=== PATIENT | male | born 1940 | race Caucasian/White ===

== ENCOUNTER 2018-10-17 19:06 | Inpatient (IN) | payer OTHER, BC ==
--- NOTE | 2018-10-17 19:38 | PDOC ---
History of Present Illness - General Chief Complaint: Chest Pain Stated Complaint: CHEST PAIN Time Seen by Provider: 10/17/18 19:38 History Source: Patient Exam Limitations: No Limitations - History of Present Illness Initial Comments: 10/17/18 19:56 78 year old male with PMH HTN, HLD on plaxix presented to ED for chest pain. Pt stated his pain began around 1400 today while he was sitting down. He stated his pain is located to his left chest, intermittent, occuring every 15 minutes, lasting seconds, nonradiating, no alleviating or aggravating factors, no association with exertion/inspiration. Pt denied palpitaitons, fever, chills, cough, lower extremity swelling, shortness of breath. Pt stated last stress test x5 years ago, was normal. Pt was seen in PCP (Dr. Felxi's) office yesterday for annual check up, had no complaints. Allergies: NKDA Smoking history: former smoker (last smoked 1960) Family history: father, [place] 75 yo; denied cardiac history for mother/siblings. [employer] [employer]: [place] Past History - Past Medical History Allergies/Adverse Reactions: Allergies Allergy/AdvReac Type Severity Reaction Status Date / Time No Known Allergies Allergy Verified 10/17/18 19:31 Home Medications: Ambulatory Orders Aspirin [ASA -] 81 mg PO DAILY 12/16/15 Atorvastatin Ca [Lipitor] 5 mg PO HS 12/16/15 Clopidogrel Bisulfate [Plavix -] 75 mg PO DAILY 12/16/15 Metoprolol Tartrate [Lopressor -] 50 mg PO DAILY 12/16/15 Hydrochlorothiazide 25 mg PO DAILY 10/17/18 Nifedipine ER [Procardia Xl -] 30 mg PO DAILY 10/17/18 HTN: Yes - Immunization History Immunization Up to Date: No - Suicide/Smoking/Psychosocial Hx Smoking History: Never smoked Have you smoked in the past 12 months: No Information on smoking cessation initiated: No Hx Alcohol Use: No Drug/Substance Use Hx: No Substance Use Type: None Review of Systems - Review of Systems Able to Perform ROS?: Yes Comments:: 10/17/18 19:57 General: denied fever, chills, generalized weakness. HEENT: denied sore throat, rhinorrhea, ear pain. Heart: admitted to chest pain. denied palpitations, syncope, diaphoresis. Respiratory: denied shortness of breath, cough, sputum production, hemoptysis. Abdomen: denied abdominal pain, nausea, vomiting, diarrhea, constipation, blood in stool. : denied dysuria, increased urinary frequency, hematuria, urinary incontinence , flank pain. Back: denied back pain. Musculoskeletal: denied joint pain, muscle pain, joint swelling. Neurological: denied headache, dizziness, numbness, tingling, weakness. Skin: denied rash, laceration, abrasion. *Physical Exam - Vital Signs Last Vital Signs Temp Pulse Resp BP Pulse Ox 97.3 F L 73 18 162/48 L 100 10/17/18 19:29 10/17/18 19:29 10/17/18 19:29 10/17/18 19:29 10/17/18 19:29 - Physical Exam Comments: 10/17/18 19:58 Constitutional: obese. appearing stated age. HEENT: head is normocephalic, atraumatic. EOMI. PERRLA. Neck: supple. Full ROM. Heart: regular rhythm. no murmurs, rubs or gallops. Lungs: clear to auscultation bilaterally. no crackles, rhonchi or wheezing. no stridor. Abdomen: soft, nontender, protuberant. normal bowel sounds. no rebound, guarding , masses. Extremities: peripheral pulses intact. 1+ pitting edema to bilateral LE. Neurological: CN 2-12 grossly intact. moves all four extremities. Psych: awake, alert, oriented x3. follows commands. answers questions appropriately. Moderate Sedation - Procedure Monitoring Vital Signs: Procedure Monitoring Vital Signs Temperature 97.3 F L 10/17/18 19:29 Pulse Rate 73 10/17/18 19:29 Respiratory Rate 18 10/17/18 19:29 Blood Pressure 162/48 L 10/17/18 19:29 O2 Sat by Pulse Oximetry (%) 100 10/17/18 19:29 Heart Score/ECG Review - History History: Slightly suspicious - Electrocardiogram EKG: Non specific repolarization disturbance - Age Age: >/= 65 - Risk Factors Risk Factors Heart Score: Yes Hx Hypercholesterolemia, Yes Hx Hypertension, Yes Smoking History, Yes Hx Obesity Based on the list above the patient has:: >/=3 risk factors or Hx atherosclerotic disease - Troponin Troponin: </= normal limit - Score Heart Score - Total: 5 ED Treatment Course - LABORATORY CBC & Chemistry Diagram: 10/20/18 05:30 10/21/18 05:50 Medical Decision Making - Medical Decision Making 10/17/18 19:59 78 year old male with above PMH presented to ED for intermittent sharp left sided chest pain. Initial Vital Signs Temp Pulse Resp BP Pulse Ox 97.3 F L 73 18 162/48 L 100 10/17/18 19:29 10/17/18 19:29 10/17/18 19:29 10/17/18 19:29 10/17/18 19:29 Afebrile. No tachycardia. No tachypnea. Mild hypertension. No hypoxia on room air. Labs ordered: CBC, CMP, trop, mag, phos, BNP, UA/UC Imaging ordered: CXR Medications ordered: ASA 162 EKG performed at 1916: rate 71, regular rhythm, normal axis, nonspecific intraventricular block, flipped T in V1/V2/V3. 10/17/18 20:15 CBC WBC 6.9 K/mm3 (4.0-10.0) 10/17/18 19:52 RBC 4.36 M/mm3 (4.00-5.60) 10/17/18 19:52 Hgb 14.2 GM/dL (11.7-16.9) 10/17/18 19:52 Hct 39.7 % (35.4-49) 10/17/18 19:52 MCV 91.1 fl (80-96) 10/17/18 19:52 MCH 32.5 pg (25.7-33.7) 10/17/18 19:52 MCHC 35.6 g/dl (32.0-35.9) 10/17/18 19:52 RDW 13.7 % (11.9-15.9) 10/17/18 19:52 Plt Count 240 K/MM3 (134-434) 10/17/18 19:52 MPV 7.3 fl (7.5-11.1) L 10/17/18 19:52 Absolute Neuts (auto) 4.8 K/mm3 (1.5-8.0) 10/17/18 19:52 Neutrophils % 69.3 % (42.8-82.8) 10/17/18 19:52 Lymphocytes % 18.5 % (8-40) 10/17/18 19:52 Monocytes % 10.1 % (3.8-10.2) 10/17/18 19:52 Eosinophils % 1.6 % (0-4.5) 10/17/18 19:52 Basophils % 0.5 % (0-2.0) 10/17/18 19:52 Nucleated RBC % 0 % (0-0) 10/17/18 19:52 No leukocytosis. No anemia. 10/17/18 21:00 CMP Sodium 128 mmol/L (136-145) L 10/17/18 19:40 Potassium 4.3 mmol/L (3.5-5.1) 10/17/18 19:40 Chloride 95 mmol/L (98-107) L 10/17/18 19:40 Carbon Dioxide 23 mmol/L (21-32) 10/17/18 19:40 Anion Gap 11 MMOL/L (8-16) 10/17/18 19:40 BUN 21 mg/dL (7-18) H 10/17/18 19:40 Creatinine 0.8 mg/dL (0.55-1.3) 10/17/18 19:40 Creat Clearance w eGFR > 60 (>60) 10/17/18 19:40 Random Glucose 115 mg/dL (74-106) H 10/17/18 19:40 Calcium 8.9 mg/dL (8.5-10.1) 10/17/18 19:40 Phosphorus 3.8 mg/dL (2.5-4.9) 10/17/18 19:40 Magnesium 1.8 mg/dL (1.8-2.4) 10/17/18 19:40 Total Bilirubin 0.4 mg/dL (0.2-1) 10/17/18 19:40 AST 14 U/L (15-37) L 10/17/18 19:40 ALT 20 U/L (13-61) 10/17/18 19:40 Alkaline Phosphatase 85 U/L (45-117) 10/17/18 19:40 Troponin I < 0.02 ng/ml (0.00-0.05) 10/17/18 19:40 B-Natriuretic Peptide 135.4 pg/ml (5-450) 10/17/18 19:40 Total Protein 7.1 g/dl (6.4-8.2) 10/17/18 19:40 Albumin 3.8 g/dl (3.4-5.0) 10/17/18 19:40 Hyponatremia. No ONESIMO. Mild dehydration. No transaminitis. Normal troponin. Normal BNP. Medications ordered: normal saline 1000 cc bolus 10/17/18 21:10 Pt to be admitted for observation of chest pain. 10/17/18 23:02 CXR report: possible left sided pleural effusion. *DC/Admit/Observation/Transfer Diagnosis at time of Disposition: Hyponatremia Chest pain Qualifiers: Chest pain type: unspecified Qualified Code(s): R07.9 - Chest pain, unspecified - Discharge Dispostion Disposition: TRANSFER ACUTE CARE/OTHER HOSP Condition at time of disposition: Stable Decision to Admit order: Yes - Referrals - Patient Instructions - Post Discharge Activity
[2018-10-17] MEDS ORDERED: ASPIRIN 81 MG CHEWABLE TABLETS PO ONE (19:41)
[2018-10-17 20:10] LABS: BASO % 0.5 % (0-2.0); EOS % 1.6 % (0-4.5); HEMATOCRIT 39.7 % (35.4-49); HEMOGLOBIN 14.2 GM/dL (11.7-16.9); LYMPH % 18.5 % (8-40); MCH 32.5 pg (25.7-33.7); MCHC 35.6 g/dl (32.0-35.9); MEAN CELL VOLUME 91.1 fl (80-96); MEAN PLT VOLUME 7.3 fl (7.5-11.1); MONO % 10.1 % (3.8-10.2); NEUT % 69.3 % (42.8-82.8); PLATELET COUNT 240 K/MM3 (134-434); RBC 4.36 M/mm3 (4.00-5.60); RDW 13.7 % (11.9-15.9); WHITE BLOOD COUNT 6.9 K/mm3 (4.0-10.0)
--- NOTE | 2018-10-17 20:28 | PDOC ---
Attending Attestation - HPI HPI: 10/17/18 20:59 The patient is a 78 year old male with a PMH of HTN, HLD, on plavix who presents to the ED for evaluation of chest pain that began at approximately 2PM today. Patient states he was sitting down when the chest pain began. Patient reports the chest pain is localized to the left side of his chest, intermittent , nonpleuritic, and nonradiating. Denies alleviating or exacerbating factors. Patient's last stress test was 5 years ago and was normal then. Patient denies shortness of breath, leg swelling, palpitations, fever, chills, N /V/D/C, or urinary symptoms. Allergies: NKDA Social Hx: Former smoker. No reported cigarette or alcohol use. Surgeries: None reported. PCP: Dr. Felix - Physicial Exam PE: 10/17/18 21:08 ADULT PHYSICAL EXAM Constitutional: Awake, alert, oriented. No acute distress. Cardiovascular: Regular rate. Regular rhythm. S1, S2 regular. Distal pulses are 2+ and symmetric. Pulmonary/Chest: No evidence of respiratory distress. Clear to auscultation bilaterally No wheezing, rales or rhonchi. No reproducible chest wall tenderness. Abdominal: Soft and non-distended. There is no tenderness. No rebound, guarding or rigidity. No organomegaly. No palpable masses. Good bowel sounds. Musculoskeletal: No edema. No cyanosis. No clubbing. Full range of motion in all extremities. Nocalf tenderness. Radial/pedal pulses are intact and 2+ bilaterally (+) chronic, 1+ pitting edema on the bilateral lower extremities. Skin: Skin is warm and dry. No petechiae. No purpura. Neurological: Alert and oriented to person, place, and time. Cranial nerves II -XII are grossly intact. Normal speech. Strength is grossly symmetric. No sensory deficits. Psychiatric: Good eye contact. Normal interaction, affect and behavior. <Loren Rincon - Last Filed: 10/17/18 21:08> - Resident Resident Name: Leah Cross - ED Attending Attestation I have performed the following: I have examined & evaluated the patient, The case was reviewed & discussed with the resident, I agree w/resident's findings & plan, Exceptions are as noted - Medical Decision Making 10/17/18 20:27 I, Dr. Maria Esther Tobias, DO, attest that this document has been prepared under my direction and personally reviewed by me in its entirety. I further attest, that it accurately reflects all work, treatment, procedures and medical decision -making performed by me. 10/17/18 21:15 a/p: 78yo male with L sided intermittent episodes of cp - sharp pain to L chest intermittently today -no radiation -new ekg changes compared to old -no cp at this time -chronic LE edema -no sob -pt is nontoxic in appearance -will send labs, ekg, cxr 10/17/18 21:16 trop negative bnp neg hyponatremia - mild will place in obs for acs r/o 10/17/18 21:16 cxr shows cardiomegaly 10/18/18 00:28 resident discussed the case with HALINA who accepts the patient to service for further eval of abnl ekg and cp <Maria Esther Tobias - Last Filed: 10/18/18 00:29> Heart Score/ECG Review - ECG Intrepretation Comment:: 10/17/18 20:27 sinus at 71, interventricular conduction delay, nl axis, abnl ekg-ekg changed from prior <Maria Esther Tobias - Last Filed: 10/18/18 00:29>
[2018-10-17 20:33] LABS: INR 0.93 (0.83-1.09)
[2018-10-17 20:36] LABS: ACTIVATED PTT 29.6 SECONDS (25.2-36.5)
[2018-10-17 20:56] LABS: ALBUMIN 3.8 g/dl (3.4-5.0); ALK PHOS 85 U/L (45-117); ANION GAP 11 MMOL/L (8-16); BILIRUBIN,TOTAL 0.4 mg/dL (0.2-1); BLOOD UREA NITROGEN 21 mg/dL (7-18); CALCIUM 8.9 mg/dL (8.5-10.1); CHLORIDE 95 mmol/L (98-107); CO2 23 mmol/L (21-32); CREATININE 0.8 mg/dL (0.55-1.3); GLUCOSE,RANDOM 115 mg/dL (74-106); MAGNESIUM 1.8 mg/dL (1.8-2.4); N-TERMINAL BNP 135.4 pg/ml (5-450); PHOSPHOROUS 3.8 mg/dL (2.5-4.9); POTASSIUM 4.3 mmol/L (3.5-5.1); SGOT/AST 14 U/L (15-37); SGPT/ALT 20 U/L (13-61); SODIUM 128 mmol/L (136-145); TOT PROT 7.1 g/dl (6.4-8.2)
[2018-10-17] MEDS ORDERED: SODIUM CHLORIDE 1,000 ML IV STA (21:00)
--- NOTE | 2018-10-17 22:49 | PN ---
Teaching Attending Note Name of Resident: Christine Urena ATTENDING PHYSICIAN STATEMENT I saw and evaluated the patient. I reviewed the resident's note and discussed the case with the resident. I agree with the resident's findings and plan as documented. SUBJECTIVE: Patient seen and examined; please refer to resident note for further historical information. Briefly, this is a 78 y/o male with multiple risk factors for CAD presenting to the ER with intermittent, moderate L-sided CP that is waxing and waning in nature; he is chest pain free when I saw him in the ER. No real association with exertion and it is not reproducible to palpation. He is afebrile and hemodynamically stable. Has seen Dr. Kasper in the past and he estimates the last visit was 6 months ago where an echo was checked in the office. He states that he had an unremarkable stress test aprox. 4 years ago but the results are not available here. No prior cath report, etc. available. Noted to be mildly to moderately hyponatremic without neuro sx. He is compliant with his medications. He is a patient of Dr. Felix and just saw him in the office a day ago for well visit. Given aspirin in the ER. 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 10 sys ROS done and negative aside from HPI PMH (DEB, HTN, HLD), PSH, Social hx, Family hx reviewed Meds (ASA, lipitor, plavix, HCTZ 25, Lopressor, Lisinopril, Nifedipine), OBJECTIVE: VS, labs, imaging reviewed NAD, AAO, resting comfortably in bed NC AT EOMI PERRLA RRR s1/2 no mgr. Pain not reproducible. Lungs CTAB, w/ sym exp NT ND +BS CN2-12 wnl, no fnd Normal mood, appropriate behavior CXR reviewed; ? L-sided pleural effusion? (states that limited L-lung base eval 2/2 technique so they can't r/o any effusion and recommended to corellate with PA/Lat view which is pending) EKG with nonspecific AVG (?RSR') and some nonspecific ST-T changes precordial leads; on telemetry with review pending Pending old records from stress test and OP echo ASSESSMENT AND PLAN: Patient presents to the ER with chest pain and is found to be hyponatremic; will place on telemetry and consult cardiology 1) Chest Pain, r/o ACS -He has multiple risk factors with remote stress test; will need to obtain old records/discuss with CV but he will likely need additional workup per CV. Will defer to their service. Holding off on echo as he has had one within 12 months. Monitor telemetry, followup troponin. Appreciate expert CV opinion. Continue ASA, Lipitor, Plavix (I am assuming he was on this for his carotid stenosis?), and BB. Control BP. -Check A1c, TSH, Lipids 2) Acute Hyponatremia -Serum/urine osm and urine na pending. Will hold off on any IVF until this is obtained as he already got 1L saline bolus as documented in the ER note. Trend BID BMP until improved. He is on HCTZ so will hold this for now and restart when clinically appropriate. Broad ddx. If worsens can consult nephrology. 3) Carotid A. Stenosis -CTA neck done here 06/28 shows moderate stenosis unchanged from prior studies. Continue plavix, ASA, Lipitor 4) HTN -Continue home meds aside from HCTZ (resume when improved with #2) 5) HLD -Continue statin and check lipids 6) Morbid Obesity -BMI 40; youth counselor prior to DC
--- NOTE | 2018-10-17 23:03 | HP ---
<Christine Urena - Last Filed: 10/17/18 23:36> CHIEF COMPLAINT: chest pain PCP: Dr. Felix HISTORY OF PRESENT ILLNESS: Patient is a 78 yo M with a PMHx of HTN, presented to the ED because of sudden onset, intermittent, non-radiating, L, "pinching", substernal L sided chest pain that started around 2pm while sitting on his computer. Patient said the pain lasts less than a second and occur every 15-20 minutes. Nothing alleviates or aggravates the pain. Patient sees Dr. Kasper. He said he last had an echo 6 months ago which he says was normal. He also said he had a nuclear stress test 4 yers ago which was also normal. He also mentioned he noticed swelling of his bilateral lower extremities which he said he mentioned it to his informatics analyst yesterday. Patient currently denies chest pain, although he said it happened 20 minutes ago. He denies lightheadedness, palpitations, syncope, nausea, vomiting, urinary symptoms, chills, fevers, cough, sob. ER course was notable for: (1) EKG changes (although prior ekg 10 years ago)- NSR @ 71, T wave inversions V1, V2, V3, possible interventricular conduction delay (2) ASA 162mg Recent Travel: denies PAST MEDICAL HISTORY: carotid art stenosis 60%, HTN PAST SURGICAL HISTORY: denies Social History: Smoking: denies Alcohol: 4-6 ounces of homemade wine every night Drugs: denies Family History: Allergies No Known Allergies Allergy (Verified 10/17/18 19:31) HOME MEDICATIONS: Home Medications Medication Instructions Recorded Aspirin [ASA -] 81 mg PO DAILY 12/16/15 Atorvastatin Ca [Lipitor] 5 mg PO HS 12/16/15 Clopidogrel Bisulfate [Plavix -] 75 mg PO DAILY 12/16/15 Metoprolol Tartrate [Lopressor -] 50 mg PO DAILY 12/16/15 Hydrochlorothiazide 25 mg PO DAILY 10/17/18 Nifedipine ER [Procardia Xl -] 30 mg PO DAILY 10/17/18 REVIEW OF SYSTEMS CONSTITUTIONAL: Absent: fever, chills, diaphoresis, generalized weakness, malaise, loss of appetite, weight change HEENT: Absent: rhinorrhea, nasal congestion, throat pain, throat swelling, difficulty swallowing, mouth swelling, ear pain, eye pain, visual changes CARDIOVASCULAR: chest pain, peripheral edema Absent: syncope, palpitations, irregular heart rate, lightheadedness RESPIRATORY: Absent: cough, shortness of breath, dyspnea with exertion, orthopnea, wheezing, stridor, hemoptysis GASTROINTESTINAL: Absent: abdominal pain, abdominal distension, nausea, vomiting, diarrhea, constipation, melena, hematochezia GENITOURINARY: Absent: dysuria, frequency, urgency, hesitancy, hematuria, flank pain, genital pain MUSCULOSKELETAL: Absent: myalgia, arthralgia, joint swelling, back pain, neck pain SKIN: Absent: rash, itching, pallor HEMATOLOGIC/IMMUNOLOGIC: Absent: easy bleeding, easy bruising, lymphadenopathy, frequent infections ENDOCRINE: Absent: unexplained weight gain, unexplained weight loss, heat intolerance, cold intolerance NEUROLOGIC: Absent: headache, focal weakness or paresthesias, dizziness, unsteady gait, seizure, mental status changes, bladder or bowel incontinence PSYCHIATRIC: Absent: anxiety, depression, suicidal or homicidal ideation, hallucinations. PHYSICAL EXAMINATION Vital Signs - 24 hr 10/17/18 19:29 Temperature 97.3 F L Pulse Rate 73 Respiratory 18 Rate Blood Pressure 162/48 L O2 Sat by Pulse 100 Oximetry (%) GENERAL: Awake, alert, and fully oriented, in no acute distress. HEAD: Normal with no signs of trauma. EYES: Pupils equal, round and reactive to light, extraocular movements intact, sclera anicteric, conjunctiva clear EARS, NOSE, THROAT: oropharynx clear without exudates. Moist mucous membranes. NECK: supple without lymphadenopathy, JVD, or masses. LUNGS: Breath sounds equal, clear to auscultation bilaterally. No wheezes, and no crackles. HEART: Regular rate and rhythm, normal S1 and S2 without murmur, rub or gallop. ABDOMEN: Soft, nontender, not distended, normoactive bowel sounds, no guarding, no rebound, no masses. LOWER EXTREMITIES: 2+ pulses, warm, well-perfused. 1+ pitting edema NEUROLOGICAL: Cranial nerves II-XII intact. Normal speech. Normal gait. SKIN: Warm, dry, normal turgor, no rashes or lesions noted, normal capillary refill. Laboratory Results - last 24 hr 10/17/18 10/17/18 10/17/18 19:40 19:52 19:52 WBC 6.9 RBC 4.36 Hgb 14.2 Hct 39.7 MCV 91.1 MCH 32.5 MCHC 35.6 RDW 13.7 Plt Count 240 MPV 7.3 L Absolute Neuts (auto) 4.8 Neutrophils % 69.3 Lymphocytes % 18.5 Monocytes % 10.1 Eosinophils % 1.6 Basophils % 0.5 Nucleated RBC % 0 PT with INR 11.00 INR 0.93 PTT (Actin FS) 29.6 Sodium 128 L Potassium 4.3 Chloride 95 L Carbon Dioxide 23 Anion Gap 11 BUN 21 H Creatinine 0.8 Creat Clearance w eGFR > 60 Random Glucose 115 H Calcium 8.9 Phosphorus 3.8 Magnesium 1.8 Total Bilirubin 0.4 AST 14 L ALT 20 Alkaline Phosphatase 85 Troponin I < 0.02 B-Natriuretic Peptide 135.4 Total Protein 7.1 Albumin 3.8 ASSESSMENT/PLAN: 78 yo M with a PMHx of HTN, presented to the ED because of sudden onset, intermittent, non-radiating, L, "pinching", substernal L sided chest pain. #Atypical Chest Pain -R/o ACS -First trop neg, repeat 2nd set -Hold off on echo for now, consider echo in the AM -Tele -Cardio consulted: Dr. Kasper -TSH -A1C -Lipid panel #Hyponatremia -urine, serum osms -1 L NS bolus given in ED -Hold off fluids for now #HTN/CAD -cont Home meds -ASA -Plavix 75mg -HCTZ 25mg (consider holding, possible cause of hyponatremia) -Lopressor 50mg -Lisinopril 40mg #FEN -No IV fluids -monitor lytes: Na -Sodium diet #DVT -hep sq #Dispo: tele obs Visit type - Emergency Visit Emergency Visit: Yes Care time: The patient presented to the Emergency Department on the above date and was hospitalized for further evaluation of their emergent condition. - New Patient This patient is new to me today: Yes Date on this admission: 10/17/18 - Critical Care Critical Care patient: No <Caio Mitchell - Last Filed: 10/21/18 21:28> Seen and examined; agree with the above aside from what is supplemented by myself in my own documentation. Reviewed all abrams parts of history and exam with resident team and verified independently.
[2018-10-18 03:32] VITALS: BMI 42.4
[2018-10-18 06:56] LABS: BASO % 0.3 % (0-2.0); HEMATOCRIT 38.2 % (35.4-49); HEMOGLOBIN 13.8 GM/dL (11.7-16.9); LYMPH % 19.3 % (8-40); MCH 32.6 pg (25.7-33.7); MEAN CELL VOLUME 90.5 fl (80-96); MEAN PLT VOLUME 7.7 fl (7.5-11.1); MONO % 9.3 % (3.8-10.2); NEUT % 70.1 % (42.8-82.8); PLATELET COUNT 213 K/MM3 (134-434); RBC 4.23 M/mm3 (4.00-5.60); RDW 13.6 % (11.9-15.9); WHITE BLOOD COUNT 6.4 K/mm3 (4.0-10.0)
[2018-10-18 07:08] LABS: INR 1.01 (0.83-1.09); PROTHROMBIN TIME (PATIENT) 11.9 SEC (9.7-13.0)
[2018-10-18] MEDS ORDERED: METOPROLOL TARTRATE 50 MG TABLET (FP) PO SCH ×2 (07:15→10:00)
[2018-10-18] MEDS: NIFEdipine E.R. 30 MG TABLET (FP) PO SCH (07:17)
[2018-10-18 08:10] LABS: ALBUMIN 3.6 g/dl (3.4-5.0); ALK PHOS 79 U/L (45-117); ANION GAP 9 MMOL/L (8-16); BILIRUBIN,TOTAL 0.6 mg/dL (0.2-1); BLOOD UREA NITROGEN 14 mg/dL (7-18); CALCIUM 8.1 mg/dL (8.5-10.1); CHLORIDE 96 mmol/L (98-107); CHOLESTEROL 137 mg/dL (50-200); CO2 25 mmol/L (21-32); CREATININE 0.7 mg/dL (0.55-1.3); GLUCOSE,RANDOM 78 mg/dL (74-106); HDL CHOLESTEROL 58 mg/dL (40-60); MAGNESIUM 2.1 mg/dL (1.8-2.4); PHOSPHOROUS 3.2 mg/dL (2.5-4.9); POTASSIUM 3.9 mmol/L (3.5-5.1); SGOT/AST 11 U/L (15-37); SGPT/ALT 16 U/L (13-61); SODIUM 129 mmol/L (136-145); TOT PROT 6.6 g/dl (6.4-8.2); TRIGLYCERIDES 98 mg/dL (0-150)
--- NOTE | 2018-10-18 09:09 | CON.CARD ---
Consult Consult Specialty:: Cardiology Referred by:: Dr. Graves Reason for Consultation:: chest pain - History of Present Illness Chief Complaint: chest pinching History of Present Illness: 78M with PMH chronic HTN, bilateral moderate carotid stenosis presents to ER with several episodes of chest "pinching" lasting few seconds at rest. No exertional chest pain or SOB. No associated N/V or diaphoresis. First two sets of cardiac enzymes are negative. There is no ECG in the chart to review at this time. Of note, he had a viral URI about 3 weeks ago. He was found to be hyponatremic and low serum osmolality. - History Source History Provided By: Patient, Medical Record - Past Medical History Cardio/Vascular: Yes: HTN, Other (moderate bilateral carotid stenosis) Pulmonary: No: Asthma, Bronchitis, Cancer, COPD, O2 Dependent, Pneumonia, Previously Intubated, Pulmonary Embolus, Pulmonary Fibrosis, Sleep Apnea, Other Gastrointestinal: No: Ascites, Cancer, Constipation, Crohn's Disease, Diverticulitis, Diverticulosis, Esophageal Varices, Gastritis, GERD, GI Bleed, Hemorrhoids, Hiatal Hernia, Inflamatory Bowel Disease, Irritable Bowel Disease, Pancreatitis, Peptic Ulcer Disease, Ulcerative Colitis, Other Hepatobiliary: No: Cirrhosis, Cholelithiasis, Cholecystitis, Choledocholithiasis , Hepatitis A, Hepatitis B, Hepatitis C, Other Renal/: No: Renal Failure, Renal Inusuff, BPH, Cancer, Hematuria, Hemodialysis , Neurogenic Bladder, Renal Calculi, UTI, Other Heme/Onc: No: Anemia, B12 Deficiency, Bleeding Disorder, Cancer, Current Chemotherapy, Current Radiation Therapy, Hemochromatosis, Hypercoaguable State, Myeloproliferative Synd, Sickle Cell Disease, Sickle Cell Trait, Thrombocytopenia, Other Infectious Disease: No: AIDS, C-Diff, Herpes Zoster, HIV, MRSA, STD's, Tuberculosis, VREF, Other Psych: No: Addictions, Anxiety, Bipolar, Depression, Panic, Psychosis, Schizophrenia, Other Musculoskeletal: No: Bursitis, Chronic low back pain, Hemiparesis, Hemiplegia, Osteoarthritis, Paraplegia, Other Rheumatology: No: Fibromyalgia, Gout, Lupus, Rheumatoid Arthritis, Sarcoidosis, Vasculitis, Other Endocrine: No: Levon's Disease, [place]'s Disease, Diabetes Insipidus, Diabetes Mellitus, Hyperparathyroidism, Hyperthyroidism, Hypothyroidism, Osteopenia, SIADH, Other Dermatology: No: Basal Cell, Cellulitis, Eczema, Melanoma, Psoriasis, Squamous Cell, Other - Alcohol/Substance Use Hx Alcohol Use: No - Smoking History Smoking history: Never smoked Have you smoked in the past 12 months: No - Social History ADL: Independent Place of : Other ([place]) History of Recent Travel: No Home Medications - Allergies Allergies/Adverse Reactions: Allergies Allergy/AdvReac Type Severity Reaction Status Date / Time No Known Allergies Allergy Verified 10/17/18 19:31 - Home Medications Home Medications: Ambulatory Orders Aspirin [ASA -] 81 mg PO DAILY 12/16/15 Atorvastatin Ca [Lipitor] 5 mg PO HS 12/16/15 Clopidogrel Bisulfate [Plavix -] 75 mg PO DAILY 12/16/15 Metoprolol Tartrate [Lopressor -] 50 mg PO DAILY 12/16/15 Hydrochlorothiazide 25 mg PO DAILY 10/17/18 Nifedipine ER [Procardia Xl -] 30 mg PO DAILY 10/17/18 Family Disease History - Family Disease History Family History: Unremarkable Review of Systems Findings/Remarks: see HPI - Review of Systems Constitutional: reports: No Symptoms Cardiovascular: reports: Chest Pain Respiratory: reports: No Symptoms Gastrointestinal: reports: No Symptoms Genitourinary: reports: No Symptoms Musculoskeletal: reports: No Symptoms Integumentary: reports: No Symptoms - Risk Factors Known Risk Factors: Yes: Hypercholesterolemia, Hypertension, Other (bilateral moderate carotid stenosis) Vital Signs: Vital Signs Temperature 98.4 F 10/18/18 03:21 Pulse Rate 62 10/18/18 06:59 Respiratory Rate 20 10/18/18 06:59 Blood Pressure 175/78 H 10/18/18 06:59 O2 Sat by Pulse Oximetry (%) 98 10/18/18 03:21 Constitutional: Yes: No Distress, Calm Eyes: Yes: Conjunctiva Clear Respiratory: Yes: CTA Bilaterally Gastrointestinal: Yes: Soft, Abdomen, Obese Cardiovascular: Yes: Regular Rate and Rhythm JVD: No Carotid Bruit: No PMI: Non-Displaced Heart Sounds: Yes: S1, S2 Edema: No Peripheral Pulses WNL: Yes Integumentary: Yes: WNL Neurological: Yes: WNL ...Motor Strength: WNL - Other Data Labs, Other Data: CBC, BMP 10/18/18 05:30 10/18/18 05:30 INR, PTT INR 1.01 (0.83-1.09) 10/18/18 05:30 Troponin, BNP 10/17/18 10/18/18 19:40 02:04 Troponin I < 0.02 0.02 B-Natriuretic Peptide 135.4 Troponin, BNP 10/17/18 10/18/18 19:40 02:04 Troponin I < 0.02 0.02 B-Natriuretic Peptide 135.4 Laboratory Tests 10/17/18 10/18/18 10/18/18 19:40 02:04 02:04 WBC Hgb Plt Count INR Sodium Potassium BUN Creatinine Serum Osmolality 265 L Calcium AST Troponin I < 0.02 0.02 HDL Cholesterol TSH 10/18/18 10/18/18 10/18/18 05:30 05:30 05:30 WBC 6.4 Hgb 13.8 Plt Count 213 INR 1.01 Sodium 129 L Potassium 3.9 BUN 14 Creatinine 0.7 Serum Osmolality Calcium 8.1 L AST 11 L Troponin I HDL Cholesterol 58 TSH 1.25 10/18/18 08:45 WBC Hgb Plt Count INR Sodium Potassium BUN Creatinine Serum Osmolality Calcium AST Troponin I Pending HDL Cholesterol TSH Imaging - Results Chest X-ray: Report Reviewed, Image Reviewed EKG: Pending Problem List - Problems (1) Chest pain Code(s): R07.9 - CHEST PAIN, UNSPECIFIED Qualifiers: Chest pain type: unspecified Qualified Code(s): R07.9 - Chest pain, unspecified (2) Hyponatremia Code(s): E87.1 - HYPO-OSMOLALITY AND HYPONATREMIA (3) Hypertension Code(s): I10 - ESSENTIAL (PRIMARY) HYPERTENSION Qualifiers: Hypertension type: essential hypertension Qualified Code(s): I10 - Essential (primary) hypertension (4) Carotid stenosis Code(s): I65.29 - OCCLUSION AND STENOSIS OF UNSPECIFIED CAROTID ARTERY Assessment/Plan IMP: Chronic, moderate HTN, suboptimaly controlled Atypical chest pain Hyponatremia- possibly due to HCTZ REC: 1. D/C HCTZ; follow serum Na+ 2. Serial cardiac enzymes 3. ECG 4. Echocardiogram today 5. Continue telemetry to r/o occult arrhythmia 6. Adjustment of antihypertensive regimen for goal BP < 140/90 7. Given risk factor profile, will plan for repeat stress test once ruled out and serum Na+ > 130. Will follow
[2018-10-18] MEDS ORDERED: NIFEdipine E.R. 30 MG TABLET (FP) PO SCH (10:00)
[2018-10-18] MEDS ORDERED: HYDROCHLOROTHIAZIDE 25 MG TABLET (FP) PO SCH (10:00)
[2018-10-18] MEDS: ASPIRIN 81 MG CHEWABLE TABLETS PO SCH (10:25)
[2018-10-18] MEDS: LISINOPRIL 20 MG TABLET (FP) PO SCH (10:25)
[2018-10-18] MEDS: CLOPIDOGREL BISULFATE 75 MG TABLET (FP) PO SCH (10:25)
[2018-10-18] MEDS: HEPARIN NA (PORCINE) 5,000 UNITS/ML 1ML VIAL SQ SCH ×2 (10:33→23:03)
--- NOTE | 2018-10-18 12:59 | PN ---
Physical Exam: SUBJECTIVE: Patient seen and examined state he came to the hospital beacuse of pain in left side of chest which was like some one is pricking him with needle, 2/10 in intensity, last for 2 sec and comes back after 20 min. Denies sob, palpitations, lightheadedness, dizziness. Denies getting sob or chest pain on walking. Now feeling good. no more pain since morning. states stress test was done 5 years ago and as per pt it was normal. states he follows dr traore every 3-4 months OBJECTIVE: Vital Signs Period Temp Pulse Resp BP Sys/Jacobo Pulse Ox Last 24 Hr 97.3 F-98.4 F 61-73 18-20 162-175/48-78 97-100 GENERAL: The patient is awake, alert, and fully oriented, in no acute distress. HEAD: Normal with no signs of trauma. ENT:dry mucous membranes. NECK: Trachea midline, full range of motion, supple. LUNGS: b/l decrease air entry. Breath sounds equal, clear to auscultation bilaterally, no wheezes, no crackles, no accessory muscle use. HEART: Regular rate and rhythm, S1, S2 without murmur, rub or gallop. ABDOMEN: Soft, nontender, nondistended, normoactive bowel sounds, no guarding, no rebound, obese EXTREMITIES: 2+ pulses, warm, well-perfused, no edema. NEUROLOGICAL: Cranial nerves II through XII grossly intact. Normal speech, gait not observed. PSYCH: Normal mood, SKIN: Warm, dry, Laboratory Results - last 24 hr 10/17/18 10/17/18 10/17/18 19:40 19:52 19:52 WBC 6.9 RBC 4.36 Hgb 14.2 Hct 39.7 MCV 91.1 MCH 32.5 MCHC 35.6 RDW 13.7 Plt Count 240 MPV 7.3 L Absolute Neuts (auto) 4.8 Neutrophils % 69.3 Lymphocytes % 18.5 Monocytes % 10.1 Eosinophils % 1.6 Basophils % 0.5 Nucleated RBC % 0 PT with INR 11.00 INR 0.93 PTT (Actin FS) 29.6 Sodium 128 L Potassium 4.3 Chloride 95 L Carbon Dioxide 23 Anion Gap 11 BUN 21 H Creatinine 0.8 Creat Clearance w eGFR > 60 Random Glucose 115 H Hemoglobin A1c % Serum Osmolality Calcium 8.9 Phosphorus 3.8 Magnesium 1.8 Total Bilirubin 0.4 AST 14 L ALT 20 Alkaline Phosphatase 85 Creatine Kinase Troponin I < 0.02 B-Natriuretic Peptide 135.4 Total Protein 7.1 Albumin 3.8 Triglycerides Cholesterol Total LDL Cholesterol HDL Cholesterol TSH 10/18/18 10/18/18 10/18/18 02:04 02:04 02:04 WBC RBC Hgb Hct MCV MCH MCHC RDW Plt Count MPV Absolute Neuts (auto) Neutrophils % Lymphocytes % Monocytes % Eosinophils % Basophils % Nucleated RBC % PT with INR INR PTT (Actin FS) Sodium Potassium Chloride Carbon Dioxide Anion Gap BUN Creatinine Creat Clearance w eGFR Random Glucose Hemoglobin A1c % 5.3 Serum Osmolality 265 L Calcium Phosphorus Magnesium Total Bilirubin AST ALT Alkaline Phosphatase Creatine Kinase Troponin I 0.02 B-Natriuretic Peptide Total Protein Albumin Triglycerides Cholesterol Total LDL Cholesterol HDL Cholesterol TSH 10/18/18 10/18/18 10/18/18 05:30 05:30 05:30 WBC 6.4 RBC 4.23 Hgb 13.8 Hct 38.2 MCV 90.5 MCH 32.6 MCHC 36.0 H RDW 13.6 Plt Count 213 MPV 7.7 Absolute Neuts (auto) 4.5 Neutrophils % 70.1 Lymphocytes % 19.3 Monocytes % 9.3 Eosinophils % 1.0 Basophils % 0.3 Nucleated RBC % 0 PT with INR 11.90 INR 1.01 PTT (Actin FS) Sodium 129 L Potassium 3.9 Chloride 96 L Carbon Dioxide 25 Anion Gap 9 BUN 14 Creatinine 0.7 Creat Clearance w eGFR > 60 Random Glucose 78 Hemoglobin A1c % Serum Osmolality Calcium 8.1 L Phosphorus 3.2 Magnesium 2.1 Total Bilirubin 0.6 AST 11 L ALT 16 Alkaline Phosphatase 79 Creatine Kinase Troponin I B-Natriuretic Peptide Total Protein 6.6 Albumin 3.6 Triglycerides 98 Cholesterol 137 Total LDL Cholesterol 69 HDL Cholesterol 58 TSH 1.25 10/18/18 10/18/18 05:30 08:45 WBC RBC Hgb Hct MCV MCH MCHC RDW Plt Count MPV Absolute Neuts (auto) Neutrophils % Lymphocytes % Monocytes % Eosinophils % Basophils % Nucleated RBC % PT with INR INR PTT (Actin FS) Sodium Potassium Chloride Carbon Dioxide Anion Gap BUN Creatinine Creat Clearance w eGFR Random Glucose Hemoglobin A1c % Serum Osmolality Calcium Phosphorus Magnesium Total Bilirubin AST ALT Alkaline Phosphatase Creatine Kinase 66 Troponin I < 0.02 B-Natriuretic Peptide Total Protein Albumin Triglycerides Cancelled Cholesterol Cancelled Total LDL Cholesterol Cancelled HDL Cholesterol Cancelled TSH Cancelled Active Medications Generic Name Dose Route Start Last Admin Trade Name Serenity PRN Reason Stop Dose Admin Aspirin 81 mg 10/18/18 10:00 10/18/18 10:25 Asa - PO 81 mg DAILY BRANDO Administration Atorvastatin Calcium 5 mg 10/18/18 22:00 Lipitor - PO HS BRANDO Clopidogrel Bisulfate 75 mg 10/18/18 10:00 10/18/18 10:25 Plavix - PO 75 mg DAILY BRANDO Administration Heparin Sodium (Porcine) 5,000 unit 10/18/18 10:00 10/18/18 10:33 Heparin - SQ 5,000 unit BID BRANDO Administration Lisinopril 40 mg 10/18/18 10:00 10/18/18 10:25 Prinivil PO 40 mg DAILY BRANDO Administration Metoprolol Succinate 50 mg 10/19/18 10:00 Toprol Xl - PO DAILY BRANDO Nifedipine 30 mg 10/18/18 07:15 10/18/18 07:17 Procardia Xl - PO Not Given DAILY BRANDO ASSESSMENT/PLAN: 78 yo M with a PMHx of HTN, presented to the ED because of sudden onset, intermittent, non-radiating, L, "pinching", substernal L sided chest pain. #Atypical Chest Pain likely musculoskelatal - echo pending - ekg no st changes - trop x3 negative - no event on case monitor - pain resolved. - cardiology on case - continue aspiri and plavix - continue statin -continue metoprolol #euvolemic hypoosmolar Hyponatremia -urine osmolarity pending -1 L NS bolus given in ED -urine electrolytes ordered. #uncontrolled HTN -cont Home meds -ASA -Plavix 75mg -HCTZ 25mg (consider holding, possible cause of hyponatremia) -Lopressor 50mg -started on Lisinopril 40mg - nifedipine 30 mg #FEN -No IV fluids -monitor lytes: Na -add little salt in diet. #DVT -hep sq #Dispo: tele obs Visit type - Emergency Visit Emergency Visit: Yes ED Registration Date: 10/17/18 Care time: The patient presented to the Emergency Department on the above date and was hospitalized for further evaluation of their emergent condition. - New Patient This patient is new to me today: Yes Date on this admission: 10/18/18 - Critical Care Critical Care patient: No
--- NOTE | 2018-10-18 13:10 | ECHO ---
Name: ARSLAN GENAO Exam:Adult Echocardiogram Study Date: 10/18/2018 11:50 AM Age: 78 yrs Reason For Study: Chest pain Height: 64 in Weight: 247 lb BSA: 2.1 m2 MMode/2D Measurements & Calculations IVSd: 1.4 cm Ao root diam: 3.1 cm LVIDd: 3.8 cm LA dimension: 2.6 cm LVIDs: 2.6 cm LVPWd: 1.5 cm LVPWs: 2.2 cm EDV(Teich): 63.6 ml ESV(Teich): 25.6 ml LVOT diam: 2.4 cm RV S Tylor: 20.9 cm/sec Doppler Measurements & Calculations MV E max tylor: 53.8 cm/sec Ao V2 max: 128.3 cm/sec MV A max tylor: 85.9 cm/sec Ao max P.6 mmHg MV E/A: 0.63 Ao V2 mean: 81.8 cm/sec MV dec time: 0.23 sec Ao mean P.4 mmHg Ao V2 VTI: 31.7 cm CHIQUIS(I,D): 3.9 cm2 CHIQUIS(V,D): 3.6 cm2 LV V1 max P.2 mmHg SV(LVOT): 122.1 ml LV V1 mean P.1 mmHg LV V1 max: 101.9 cm/sec LV V1 mean: 65.5 cm/sec LV V1 VTI: 27.2 cm PA V2 max: 141.8 cm/sec Med Peak E' Tylor: 5.8 cm/sec PA max P.0 mmHg Med E/e': 9.3 Lat Peak E' Tylor: 5.5 cm/sec Lat E/e': 9.7 Procedure The study was technically difficult with many images being suboptimal in quality. Left Ventricle Left ventricular systolic function is grossly normal. Ejection Fraction = 50-55%. The transmitral spe ctral Doppler flow pattern is suggestive of impaired LV relaxation. Regional wall motion abnormalities jluis ot be excluded due to limited visualization. Right Ventricle The right ventricle is grossly normal size. The right ventricular systolic function is grossly normal . Atria Normal left and right atrial size and function. Mitral Valve The mitral valve is normal in structure and function. There is no mitral valve stenosis. There is tra ce mitral regurgitation. Tricuspid Valve The tricuspid valve is normal in structure and function. There is mild tricuspid regurgitation. Aortic Valve The aortic valve opens well. No hemodynamically significant valvular aortic stenosis. No aortic regur gitation is present. Pulmonic Valve The pulmonic valve is not well seen, but is grossly normal. There is no pulmonic valvular stenosis. T here is no pulmonic valvular regurgitation. Great Vessels The aortic root is normal size. Pericardium/Pleura There is no pericardial effusion. Interpretation Summary The study was technically difficult with many images being suboptimal in quality. Regional wall motion abnormalities cannot be excluded due to limited visualization. Left ventricular systolic function is grossly normal. Ejection Fraction = 50-55%. The transmitral spectral Doppler flow pattern is suggestive of impaired LV relaxation. There is mild tricuspid regurgitation. There is no pericardial effusion. MD Delatorre *Majo 10/18/2018 01:10 PM
--- NOTE | 2018-10-18 14:15 | EKG ---
Test Reason : Blood Pressure : / mmHG Vent. Rate : 056 BPM Atrial Rate : 056 BPM P-R Int : 172 ms QRS Dur : 134 ms QT Int : 466 ms P-R-T Axes : 025 -16 026 degrees QTc Int : 449 ms SINUS BRADYCARDIA WITH PREMATURE ATRIAL COMPLEXES RIGHT BUNDLE BRANCH BLOCK ABNORMAL ECG Confirmed by BETHEL TRAN MD ([id number]) on 10/18/2018 2:14:47 PM Referred By: Confirmed By:BETHEL TRAN MD
--- NOTE | 2018-10-18 14:21 | PN ---
Teaching Attending Note Name of Resident: Logan Morocho ATTENDING PHYSICIAN STATEMENT I saw and evaluated the patient. I reviewed the resident's note and discussed the case with the resident. I agree with the resident's findings and plan as documented. SUBJECTIVE: Mr Jc says he is feeling well today. Had pinpoint chest pain but now resolved. No cp, sob, n/v. OBJECTIVE: Last Vital Signs Temp Pulse Resp BP Pulse Ox 36.9 C 62 20 175/78 H 98 10/18/18 03:21 10/18/18 06:59 10/18/18 06:59 10/18/18 06:59 10/18/18 03:21 Gen: nad, obese Pulm: ctab w/oo w/r/r CV: rrr w/o m/r/g Abd: +bs, s/nt/nd Ext: no c/c/e CBC, BMP 10/18/18 05:30 10/18/18 05:30 ASSESSMENT AND PLAN: Problem List - Problems (1) Chest pain Assessment/Plan: -case d/w Dr Kasper -ECHO read reviewed -will need stress test this hospital stay -continue aspirin, plavix, toprol xl -add lisinopril Code(s): R07.9 - CHEST PAIN, UNSPECIFIED Qualifiers: Chest pain type: unspecified Qualified Code(s): R07.9 - Chest pain, unspecified (2) Hypertension Assessment/Plan: -stopped HCTZ secondary to hyponatremia -lisinopril added -continue toprol xl and procardia -controlled this morning after medications Code(s): I10 - ESSENTIAL (PRIMARY) HYPERTENSION Qualifiers: Hypertension type: essential hypertension Qualified Code(s): I10 - Essential (primary) hypertension (3) Hyponatremia Assessment/Plan: -holding HCTZ -improving Code(s): E87.1 - HYPO-OSMOLALITY AND HYPONATREMIA (4) Carotid stenosis Assessment/Plan: -carotid dopplers checked Code(s): I65.29 - OCCLUSION AND STENOSIS OF UNSPECIFIED CAROTID ARTERY
--- NOTE | 2018-10-18 14:23 | EKG ---
Test Reason : Blood Pressure : / mmHG Vent. Rate : 071 BPM Atrial Rate : 071 BPM P-R Int : 158 ms QRS Dur : 130 ms QT Int : 440 ms P-R-T Axes : 024 -01 031 degrees QTc Int : 478 ms NORMAL SINUS RHYTHM NON-SPECIFIC INTRA-VENTRICULAR CONDUCTION BLOCK ABNORMAL ECG Confirmed by BETHEL TRAN MD ([id number]) on 10/18/2018 2:22:49 PM Referred By: Confirmed By:BETHEL TRAN MD
[2018-10-18] MEDS: ATORVASTATIN CA 10 MG TABLET (FP) PO SCH (23:03)
[2018-10-19 07:30] LABS: ANION GAP 5 MMOL/L (8-16); BLOOD UREA NITROGEN 13 mg/dL (7-18); CALCIUM 8.2 mg/dL (8.5-10.1); CHLORIDE 98 mmol/L (98-107); CO2 26 mmol/L (21-32); CREATININE 0.9 mg/dL (0.55-1.3); GLUCOSE,RANDOM 94 mg/dL (74-106); POTASSIUM 3.9 mmol/L (3.5-5.1); SODIUM 129 mmol/L (136-145)
--- NOTE | 2018-10-19 08:56 | PN ---
Progress Note, Physician History of Present Illness: 78M with PMH chronic HTN, bilateral moderate carotid stenosis presents to ER with several episodes of chest "pinching" lasting few seconds at rest. No exertional chest pain or SOB. No associated N/V or diaphoresis. First two sets of cardiac enzymes are negative. There is no ECG in the chart to review at this time. Of note, he had a viral URI about 3 weeks ago. He was found to be hyponatremic and low serum osmolality. - Current Medication List Current Medications: Active Medications Aspirin (Asa -) 81 mg PO DAILY [facility] Last Admin: 10/18/18 10:25 Dose: 81 mg Atorvastatin Calcium (Lipitor -) 5 mg PO HS [facility] Last Admin: 10/18/18 23:03 Dose: 5 mg Clopidogrel Bisulfate (Plavix -) 75 mg PO DAILY [facility] Last Admin: 10/18/18 10:25 Dose: 75 mg Heparin Sodium (Porcine) (Heparin -) 5,000 unit SQ BID [facility] Last Admin: 10/18/18 23:03 Dose: 5,000 unit Lisinopril (Prinivil) 40 mg PO DAILY [facility] Last Admin: 10/18/18 10:25 Dose: 40 mg Metoprolol Succinate (Toprol Xl -) 50 mg PO DAILY [facility] Nifedipine (Procardia Xl -) 30 mg PO DAILY [facility] Last Admin: 10/18/18 07:17 Dose: Not Given - Objective Vital Signs: Vital Signs Temperature 97.9 F 10/19/18 05:15 Pulse Rate 58 L 10/19/18 05:15 Respiratory Rate 20 10/19/18 07:37 Blood Pressure 113/45 L 10/19/18 05:15 O2 Sat by Pulse Oximetry (%) 98 10/19/18 07:37 Eyes: Yes: WNL, Conjunctiva Clear, EOM Intact HENT: Yes: WNL, Atraumatic, Normocephalic Neck: Yes: WNL, Supple, Trachea Midline Cardiovascular: Yes: WNL, Regular Rate and Rhythm Respiratory: Yes: WNL, Regular, CTA Bilaterally Gastrointestinal: Yes: WNL, Normal Bowel Sounds Genitourinary: Yes: WNL Musculoskeletal: Yes: WNL Extremities: Yes: WNL Edema: No Integumentary: Yes: WNL Neurological: Yes: WNL, Alert, Oriented ...Motor Strength: WNL Psychiatric: Yes: WNL Labs: CBC, BMP 10/18/18 05:30 10/19/18 06:38 INR, PTT INR 1.01 (0.83-1.09) 10/18/18 05:30 Assessment/Plan - Problems (1) Chest pain Code(s): R07.9 - CHEST PAIN, UNSPECIFIED Qualifiers: Chest pain type: unspecified Qualified Code(s): R07.9 - Chest pain, unspecified (2) Hyponatremia Code(s): E87.1 - HYPO-OSMOLALITY AND HYPONATREMIA (3) Hypertension Code(s): I10 - ESSENTIAL (PRIMARY) HYPERTENSION Qualifiers: Hypertension type: essential hypertension Qualified Code(s): I10 - Essential (primary) hypertension (4) Carotid stenosis Code(s): I65.29 - OCCLUSION AND STENOSIS OF UNSPECIFIED CAROTID ARTERY Assessment/Plan IMP: Chronic, moderate HTN, suboptimaly controlled Atypical chest pain Hyponatremia- possibly due to HCTZ REC: 1. D/C HCTZ; follow serum Na+ 2. Serial cardiac enzymes 3. ECG 4. Echocardiogram today 5. Continue telemetry to r/o occult arrhythmia 6. Adjustment of antihypertensive regimen for goal BP < 140/90 7. Given risk factor profile, will plan for repeat stress test once ruled out and serum Na+ > 130. coverage dr[address] Kasper
[2018-10-19] MEDS: NIFEdipine E.R. 30 MG TABLET (FP) PO SCH (09:26)
[2018-10-19] MEDS: LISINOPRIL 20 MG TABLET (FP) PO SCH (09:26)
[2018-10-19] MEDS: ASPIRIN 81 MG CHEWABLE TABLETS PO SCH (09:26)
[2018-10-19] MEDS: CLOPIDOGREL BISULFATE 75 MG TABLET (FP) PO SCH (09:26)
[2018-10-19] MEDS: HEPARIN NA (PORCINE) 5,000 UNITS/ML 1ML VIAL SQ SCH ×2 (09:27→21:46)
--- NOTE | 2018-10-19 10:51 | PN ---
Progress Note, Physician Chief Complaint: Mr Jc is without complaint. Denies cp, sob, n/v. States he is not drinking much. - Current Medication List Current Medications: Active Medications Aspirin (Asa -) 81 mg PO DAILY [facility] Last Admin: 10/19/18 09:26 Dose: 81 mg Atorvastatin Calcium (Lipitor -) 5 mg PO HS [facility] Last Admin: 10/18/18 23:03 Dose: 5 mg Clopidogrel Bisulfate (Plavix -) 75 mg PO DAILY [facility] Last Admin: 10/19/18 09:26 Dose: 75 mg Heparin Sodium (Porcine) (Heparin -) 5,000 unit SQ BID [facility] Last Admin: 10/19/18 09:27 Dose: 5,000 unit Lisinopril (Prinivil) 40 mg PO DAILY [facility] Last Admin: 10/19/18 09:26 Dose: 40 mg Metoprolol Succinate (Toprol Xl -) 50 mg PO DAILY [facility] Last Admin: 10/19/18 09:26 Dose: 50 mg Nifedipine (Procardia Xl -) 30 mg PO DAILY [facility] Last Admin: 10/19/18 09:26 Dose: 30 mg - Objective Vital Signs: Vital Signs Temperature 36.6 C 10/19/18 09:25 Pulse Rate 72 10/19/18 09:25 Respiratory Rate 17 10/19/18 09:25 Blood Pressure 152/68 10/19/18 09:25 O2 Sat by Pulse Oximetry (%) 98 10/19/18 07:37 Constitutional: Yes: No Distress, Calm, Obese Cardiovascular: Yes: Regular Rate and Rhythm. No: Gallop, Murmur, Rub Respiratory: Yes: Regular, CTA Bilaterally. No: Rales, Rhonchi, Wheezes Gastrointestinal: Yes: Normal Bowel Sounds, Soft. No: Distention, Tenderness Extremities: Yes: WNL Edema: No Labs: CBC, BMP 10/18/18 05:30 10/19/18 06:38 INR, PTT INR 1.01 (0.83-1.09) 10/18/18 05:30 Problem List - Problems (1) Chest pain Code(s): R07.9 - CHEST PAIN, UNSPECIFIED Qualifiers: Chest pain type: unspecified Qualified Code(s): R07.9 - Chest pain, unspecified (2) Hypertension Code(s): I10 - ESSENTIAL (PRIMARY) HYPERTENSION Qualifiers: Hypertension type: essential hypertension Qualified Code(s): I10 - Essential (primary) hypertension (3) Hyponatremia Code(s): E87.1 - HYPO-OSMOLALITY AND HYPONATREMIA (4) Carotid stenosis Code(s): I65.29 - OCCLUSION AND STENOSIS OF UNSPECIFIED CAROTID ARTERY Assessment/Plan (1) Chest pain Assessment/Plan: -continue aspirin, plavix, toprol xl -lisinopril added -plan for stress test on Sunday Code(s): R07.9 - CHEST PAIN, UNSPECIFIED Qualifiers: Chest pain type: unspecified Qualified Code(s): R07.9 - Chest pain, unspecified (2) Hypertension Assessment/Plan: -stopped HCTZ secondary to hyponatremia -lisinopril added -continue toprol xl and procardia Code(s): I10 - ESSENTIAL (PRIMARY) HYPERTENSION Qualifiers: Hypertension type: essential hypertension Qualified Code(s): I10 - Essential (primary) hypertension (3) Hyponatremia Assessment/Plan: -HCTZ stopped -currently stable at 129 -suspect secondary to thiazide -consider SIADH but all labs do not fit pattern -is hyponatremic and hypoosmalality -however urine sodium is low and urine osms are pending -will continue to hold HCTZ -if does not improve, will consult nephrology Code(s): E87.1 - HYPO-OSMOLALITY AND HYPONATREMIA (4) Carotid stenosis Assessment/Plan: -carotid dopplers checked -will d/w cardiology if would benefit from CTA Code(s): I65.29 - OCCLUSION AND STENOSIS OF UNSPECIFIED CAROTID ARTERY
[2018-10-19] MEDS: ATORVASTATIN CA 10 MG TABLET (FP) PO SCH (21:47)
[2018-10-20 07:20] LABS: ANION GAP 8 MMOL/L (8-16); BLOOD UREA NITROGEN 11 mg/dL (7-18); CALCIUM 8.4 mg/dL (8.5-10.1); CHLORIDE 100 mmol/L (98-107); CO2 23 mmol/L (21-32); CREATININE 0.8 mg/dL (0.55-1.3); GLUCOSE,RANDOM 97 mg/dL (74-106); MAGNESIUM 2.1 mg/dL (1.8-2.4); PHOSPHOROUS 3.2 mg/dL (2.5-4.9); POTASSIUM 4.1 mmol/L (3.5-5.1); SODIUM 131 mmol/L (136-145)
[2018-10-20 08:23] LABS: BASO % 0.6 % (0-2.0); EOS % 0.5 % (0-4.5); HEMOGLOBIN 13.6 GM/dL (11.7-16.9); LYMPH % 21.8 % (8-40); MCH 31.8 pg (25.7-33.7); MEAN PLT VOLUME 7.4 fl (7.5-11.1); MONO % 10.4 % (3.8-10.2); NEUT % 66.7 % (42.8-82.8); PLATELET COUNT 230 K/MM3 (134-434); RBC 4.29 M/mm3 (4.00-5.60); RDW 13.6 % (11.9-15.9); WHITE BLOOD COUNT 5.6 K/mm3 (4.0-10.0)
[2018-10-20] MEDS: LISINOPRIL 20 MG TABLET (FP) PO SCH (09:19)
[2018-10-20] MEDS: NIFEdipine E.R. 30 MG TABLET (FP) PO SCH (09:19)
[2018-10-20] MEDS: HEPARIN NA (PORCINE) 5,000 UNITS/ML 1ML VIAL SQ SCH ×2 (09:20→21:31)
[2018-10-20] MEDS: CLOPIDOGREL BISULFATE 75 MG TABLET (FP) PO SCH (09:20)
--- NOTE | 2018-10-20 09:36 | PN ---
Progress Note, Physician History of Present Illness: 78M with PMH chronic HTN, bilateral moderate carotid stenosis presents to ER with several episodes of chest "pinching" lasting few seconds at rest. No exertional chest pain or SOB. No associated N/V or diaphoresis. First two sets of cardiac enzymes are negative. There is no ECG in the chart to review at this time. Of note, he had a viral URI about 3 weeks ago. He was found to be hyponatremic and low serum osmolality. - Current Medication List Current Medications: Active Medications Aspirin (Asa -) 81 mg PO DAILY [facility] Last Admin: 10/19/18 09:26 Dose: 81 mg Atorvastatin Calcium (Lipitor -) 5 mg PO HS [facility] Last Admin: 10/19/18 21:47 Dose: 5 mg Clopidogrel Bisulfate (Plavix -) 75 mg PO DAILY [facility] Last Admin: 10/20/18 09:20 Dose: 75 mg Heparin Sodium (Porcine) (Heparin -) 5,000 unit SQ BID [facility] Last Admin: 10/20/18 09:20 Dose: Not Given Lisinopril (Prinivil) 40 mg PO DAILY [facility] Last Admin: 10/20/18 09:19 Dose: 40 mg Metoprolol Succinate (Toprol Xl -) 50 mg PO DAILY [facility] Last Admin: 10/20/18 09:20 Dose: 50 mg Nifedipine (Procardia Xl -) 30 mg PO DAILY [facility] Last Admin: 10/20/18 09:19 Dose: 30 mg - Objective Vital Signs: Vital Signs Temperature 98.0 F 10/20/18 09:18 Pulse Rate 67 10/20/18 09:18 Respiratory Rate 18 10/20/18 09:18 Blood Pressure 146/69 10/20/18 09:18 O2 Sat by Pulse Oximetry (%) 98 10/20/18 07:57 Eyes: Yes: WNL, Conjunctiva Clear, EOM Intact HENT: Yes: WNL, Atraumatic, Normocephalic Neck: Yes: WNL, Supple, Trachea Midline Cardiovascular: Yes: WNL, Regular Rate and Rhythm Respiratory: Yes: WNL, Regular, CTA Bilaterally Gastrointestinal: Yes: WNL, Normal Bowel Sounds Genitourinary: Yes: WNL Musculoskeletal: Yes: WNL Extremities: Yes: WNL Edema: No Integumentary: Yes: WNL Neurological: Yes: WNL, Alert, Oriented ...Motor Strength: WNL Psychiatric: Yes: WNL Labs: CBC, BMP 10/20/18 05:30 10/20/18 05:30 INR, PTT INR 1.01 (0.83-1.09) 10/18/18 05:30 Assessment/Plan - Problems (1) Chest pain Code(s): R07.9 - CHEST PAIN, UNSPECIFIED Qualifiers: Chest pain type: unspecified Qualified Code(s): R07.9 - Chest pain, unspecified (2) Hyponatremia Code(s): E87.1 - HYPO-OSMOLALITY AND HYPONATREMIA (3) Hypertension Code(s): I10 - ESSENTIAL (PRIMARY) HYPERTENSION Qualifiers: Hypertension type: essential hypertension Qualified Code(s): I10 - Essential (primary) hypertension (4) Carotid stenosis Code(s): I65.29 - OCCLUSION AND STENOSIS OF UNSPECIFIED CAROTID ARTERY Assessment/Plan IMP: Chronic, moderate HTN, suboptimaly controlled Atypical chest pain Hyponatremia- possibly due to HCTZ REC: 1. D/C HCTZ; follow serum Na+ 2. Serial cardiac enzymes 3. ECG 4. Echocardiogram today 5. Continue telemetry to r/o occult arrhythmia 6. Adjustment of antihypertensive regimen for goal BP < 140/90 7. Given risk factor profile, will plan for repeat stress test once ruled out and serum Na+ > 130. coverage dr. Kasper
[2018-10-20] MEDS ORDERED: NIFEdipine E.R. 30 MG TABLET (FP) PO SCH (14:17)
--- NOTE | 2018-10-20 14:18 | PN ---
Progress Note, Physician Chief Complaint: Mr Jc is without complaint. Denies cp, sob, n/v. Is excited to be discharged tomorrow. - Current Medication List Current Medications: Active Medications Aspirin (Asa -) 81 mg PO DAILY [facility] Last Admin: 10/19/18 09:26 Dose: 81 mg Atorvastatin Calcium (Lipitor -) 5 mg PO HS [facility] Last Admin: 10/19/18 21:47 Dose: 5 mg Clopidogrel Bisulfate (Plavix -) 75 mg PO DAILY [facility] Last Admin: 10/20/18 09:20 Dose: 75 mg Heparin Sodium (Porcine) (Heparin -) 5,000 unit SQ BID [facility] Last Admin: 10/20/18 09:20 Dose: Not Given Lisinopril (Prinivil) 40 mg PO DAILY [facility] Last Admin: 10/20/18 09:19 Dose: 40 mg Metoprolol Succinate (Toprol Xl -) 50 mg PO DAILY [facility] Last Admin: 10/20/18 09:20 Dose: 50 mg Nifedipine (Procardia Xl -) 30 mg PO DAILY [facility] Last Admin: 10/20/18 09:19 Dose: 30 mg - Objective Vital Signs: Vital Signs Temperature 36.6 C 10/20/18 13:41 Pulse Rate 68 10/20/18 13:41 Respiratory Rate 20 10/20/18 13:41 Blood Pressure 166/68 10/20/18 13:41 O2 Sat by Pulse Oximetry (%) 98 10/20/18 07:57 Constitutional: Yes: Well Nourished, No Distress, Calm Cardiovascular: Yes: Regular Rate and Rhythm. No: Gallop, Murmur, Rub Respiratory: Yes: Regular, CTA Bilaterally. No: Rales, Rhonchi, Wheezes Gastrointestinal: Yes: Normal Bowel Sounds, Soft. No: Distention, Tenderness Extremities: Yes: WNL Edema: No Labs: CBC, BMP 10/20/18 05:30 10/20/18 05:30 INR, PTT INR 1.01 (0.83-1.09) 10/18/18 05:30 Problem List - Problems (1) Chest pain Code(s): R07.9 - CHEST PAIN, UNSPECIFIED Qualifiers: Chest pain type: unspecified Qualified Code(s): R07.9 - Chest pain, unspecified (2) Hypertension Code(s): I10 - ESSENTIAL (PRIMARY) HYPERTENSION Qualifiers: Hypertension type: essential hypertension Qualified Code(s): I10 - Essential (primary) hypertension (3) Hyponatremia Code(s): E87.1 - HYPO-OSMOLALITY AND HYPONATREMIA (4) Carotid stenosis Code(s): I65.29 - OCCLUSION AND STENOSIS OF UNSPECIFIED CAROTID ARTERY Assessment/Plan (1) Chest pain Assessment/Plan: -continue aspirin, plavix, toprol xl -lisinopril added this admission -plan for stress test on Sunday Code(s): R07.9 - CHEST PAIN, UNSPECIFIED Qualifiers: Chest pain type: unspecified Qualified Code(s): R07.9 - Chest pain, unspecified (2) Hypertension Assessment/Plan: -stopped HCTZ secondary to hyponatremia -lisinopril added this admission, continue toprol -blood pressure still elevated, increase nifedipine to 60mg Code(s): I10 - ESSENTIAL (PRIMARY) HYPERTENSION Qualifiers: Hypertension type: essential hypertension Qualified Code(s): I10 - Essential (primary) hypertension (3) Hyponatremia Assessment/Plan: -improving with cessation of HCTZ Code(s): E87.1 - HYPO-OSMOLALITY AND HYPONATREMIA (4) Carotid stenosis Assessment/Plan: -carotid dopplers checked -will d/w cardiology if would benefit from CTA Code(s): I65.29 - OCCLUSION AND STENOSIS OF UNSPECIFIED CAROTID ARTERY
[2018-10-20] MEDS: ASPIRIN 81 MG CHEWABLE TABLETS PO SCH (18:23)
[2018-10-20] MEDS ORDERED: NIFEdipine E.R. 30 MG TABLET (FP) PO ONE (21:15)
[2018-10-20] MEDS: ATORVASTATIN CA 10 MG TABLET (FP) PO SCH (21:31)
[2018-10-21 07:49] LABS: ANION GAP 8 MMOL/L (8-16); BLOOD UREA NITROGEN 11 mg/dL (7-18); CALCIUM 8.1 mg/dL (8.5-10.1); CHLORIDE 98 mmol/L (98-107); CO2 24 mmol/L (21-32); CREATININE 0.8 mg/dL (0.55-1.3); GLUCOSE,RANDOM 84 mg/dL (74-106); SODIUM 131 mmol/L (136-145)
--- NOTE | 2018-10-21 08:55 | PN ---
Progress Note, Physician Chief Complaint: no further CP Cardiac enzymes negative Echo with diastolic dysfx, o/w ok History of Present Illness: TELE: NSR - Current Medication List Current Medications: Active Medications Aspirin (Asa -) 81 mg PO DAILY [facility] Last Admin: 10/20/18 18:23 Dose: 81 mg Atorvastatin Calcium (Lipitor -) 5 mg PO HS [facility] Last Admin: 10/20/18 21:31 Dose: 5 mg Clopidogrel Bisulfate (Plavix -) 75 mg PO DAILY [facility] Last Admin: 10/20/18 09:20 Dose: 75 mg Heparin Sodium (Porcine) (Heparin -) 5,000 unit SQ BID [facility] Last Admin: 10/20/18 21:31 Dose: Not Given Lisinopril (Prinivil) 40 mg PO DAILY [facility] Last Admin: 10/20/18 09:19 Dose: 40 mg Metoprolol Succinate (Toprol Xl -) 50 mg PO DAILY [facility] Last Admin: 10/20/18 09:20 Dose: 50 mg Nifedipine (Procardia Xl -) 60 mg PO DAILY [facility] - Objective Vital Signs: Vital Signs Temperature 98.5 F 10/21/18 06:00 Pulse Rate 58 L 10/21/18 06:00 Respiratory Rate 18 10/21/18 06:00 Blood Pressure 135/57 L 10/21/18 06:00 O2 Sat by Pulse Oximetry (%) 98 10/20/18 21:00 Constitutional: Yes: No Distress, Calm Eyes: Yes: Conjunctiva Clear, EOM Intact HENT: Yes: Atraumatic, Normocephalic Neck: Yes: Supple, Trachea Midline Cardiovascular: Yes: Regular Rate and Rhythm Respiratory: Yes: CTA Bilaterally (no rales or wheezing) Gastrointestinal: Yes: Soft, Abdomen, Obese Edema: No Neurological: Yes: Alert, Oriented ...Motor Strength: WNL Labs: CBC, BMP 10/20/18 05:30 10/21/18 05:50 INR, PTT INR 1.01 (0.83-1.09) 10/18/18 05:30 Laboratory Tests 10/18/18 10/20/18 10/21/18 08:45 05:30 05:50 WBC 5.6 Hgb 13.6 Plt Count 230 Sodium 131 L Potassium 4.0 BUN 11 Creatinine 0.8 Creatine Kinase 66 Troponin I < 0.02 - ....Imaging EKG: Image Reviewed Problem List - Problems (1) Chest pain Code(s): R07.9 - CHEST PAIN, UNSPECIFIED Qualifiers: Chest pain type: unspecified Qualified Code(s): R07.9 - Chest pain, unspecified (2) Hyponatremia Code(s): E87.1 - HYPO-OSMOLALITY AND HYPONATREMIA (3) Hypertension Code(s): I10 - ESSENTIAL (PRIMARY) HYPERTENSION Qualifiers: Hypertension type: essential hypertension Qualified Code(s): I10 - Essential (primary) hypertension (4) Carotid stenosis Code(s): I65.29 - OCCLUSION AND STENOSIS OF UNSPECIFIED CAROTID ARTERY Assessment/Plan IMP: Chronic, moderate HTN, suboptimaly controlled Atypical chest pain Hyponatremia- possibly due to HCTZ REC: 1. Serum Na+ improving off HCTZ 2. Serial cardiac enzymes negative 3. Echo with normal EF, no effusion, no sig PHTN. 4. Tele for 48 hrs + without arrhythmias 5. Adjustment of antihypertensive regimen for goal BP < 140/90 6. Nuclear stress test today. If WNL, plan for d/c home with outpatient f/u w/ PMD for Na+ 7. The carotid stenosis is chronic and he has been followed by Vascular, asymptomatic. Continue medical therapy and will continue outpatient surveillance and Vascular f/u.
[2018-10-21] MEDS: ASPIRIN 81 MG CHEWABLE TABLETS PO SCH (11:58)
[2018-10-21] MEDS: HEPARIN NA (PORCINE) 5,000 UNITS/ML 1ML VIAL SQ SCH ×2 (11:58→22:46)
[2018-10-21] MEDS: LISINOPRIL 20 MG TABLET (FP) PO SCH (11:59)
[2018-10-21] MEDS: CLOPIDOGREL BISULFATE 75 MG TABLET (FP) PO SCH (11:59)
--- NOTE | 2018-10-21 14:47 | PN ---
Progress Note, Physician Chief Complaint: Mr Jc says he is feeling well and is ready to go home. Denies cp, sob, n/ v. - Current Medication List Current Medications: Active Medications Aspirin (Asa -) 81 mg PO DAILY [facility] Last Admin: 10/21/18 11:58 Dose: 81 mg Atorvastatin Calcium (Lipitor -) 5 mg PO HS [facility] Last Admin: 10/20/18 21:31 Dose: 5 mg Clopidogrel Bisulfate (Plavix -) 75 mg PO DAILY [facility] Last Admin: 10/21/18 11:59 Dose: 75 mg Heparin Sodium (Porcine) (Heparin -) 5,000 unit SQ BID [facility] Last Admin: 10/21/18 11:58 Dose: 5,000 unit Lisinopril (Prinivil) 40 mg PO DAILY [facility] Last Admin: 10/21/18 11:59 Dose: 40 mg Metoprolol Succinate (Toprol Xl -) 50 mg PO DAILY [facility] Last Admin: 10/21/18 11:59 Dose: 50 mg Nifedipine (Procardia Xl -) 60 mg PO DAILY [facility] Last Admin: 10/21/18 11:59 Dose: 60 mg - Objective Vital Signs: Vital Signs Temperature 36.6 C 10/21/18 11:51 Pulse Rate 65 10/21/18 11:51 Respiratory Rate 20 10/21/18 11:51 Blood Pressure 136/69 10/21/18 11:51 O2 Sat by Pulse Oximetry (%) 98 10/21/18 09:00 Constitutional: Yes: No Distress, Calm, Obese Cardiovascular: Yes: Regular Rate and Rhythm. No: Gallop, Murmur, Rub Respiratory: Yes: Regular, CTA Bilaterally. No: Rales, Rhonchi, Wheezes Gastrointestinal: Yes: Normal Bowel Sounds, Soft. No: Distention, Tenderness Extremities: Yes: WNL Edema: No Labs: CBC, BMP 10/20/18 05:30 10/21/18 05:50 INR, PTT INR 1.01 (0.83-1.09) 10/18/18 05:30 Problem List - Problems (1) Chest pain Code(s): R07.9 - CHEST PAIN, UNSPECIFIED Qualifiers: Chest pain type: unspecified Qualified Code(s): R07.9 - Chest pain, unspecified (2) Hypertension Code(s): I10 - ESSENTIAL (PRIMARY) HYPERTENSION Qualifiers: Hypertension type: essential hypertension Qualified Code(s): I10 - Essential (primary) hypertension (3) Hyponatremia Code(s): E87.1 - HYPO-OSMOLALITY AND HYPONATREMIA (4) Carotid stenosis Code(s): I65.29 - OCCLUSION AND STENOSIS OF UNSPECIFIED CAROTID ARTERY Assessment/Plan (1) Chest pain Assessment/Plan: -continue aspirin, plavix, toprol xl -lisinopril added this admission -stress test abnormal -case d/w Dr Kasper, planning on transfer for cardiac cath Code(s): R07.9 - CHEST PAIN, UNSPECIFIED Qualifiers: Chest pain type: unspecified Qualified Code(s): R07.9 - Chest pain, unspecified (2) Hypertension Assessment/Plan: -stopped HCTZ secondary to hyponatremia -lisinopril added this admission, continue toprol -nifedipine increased to 60mg daily, improved control Code(s): I10 - ESSENTIAL (PRIMARY) HYPERTENSION Qualifiers: Hypertension type: essential hypertension Qualified Code(s): I10 - Essential (primary) hypertension (3) Hyponatremia Assessment/Plan: -improving with cessation of HCTZ Code(s): E87.1 - HYPO-OSMOLALITY AND HYPONATREMIA (4) Carotid stenosis Assessment/Plan: -stable Code(s): I65.29 - OCCLUSION AND STENOSIS OF UNSPECIFIED CAROTID ARTERY
--- NOTE | 2018-10-21 16:36 | PN ---
Progress Note (short form) - Note Progress Note: Nuclear stress reviewed: inferolateral and inferoapical ischemia. Results reviewed in detail with patient and . Options of continued medical therapy vs medical with [facility] for definitive assessment of presence and extent of CAD were reviewed. In light of his new symptoms and several risk factors (HTN/Carotid stenosis), I have recommended left heart cath for definitive assessment. Risks of cath were discussed: arterial damage, renal failure, [place], coronary perforation, CVA. Benefits are greater than small potential risks in my judgement. Patient has opted for cath. Has been accepted for transfer to [facility], Dr. Tinoco. Problem List - Problems (1) Chest pain Code(s): R07.9 - CHEST PAIN, UNSPECIFIED Qualifiers: Chest pain type: unspecified Qualified Code(s): R07.9 - Chest pain, unspecified (2) Hyponatremia Code(s): E87.1 - HYPO-OSMOLALITY AND HYPONATREMIA (3) Hypertension Code(s): I10 - ESSENTIAL (PRIMARY) HYPERTENSION Qualifiers: Hypertension type: essential hypertension Qualified Code(s): I10 - Essential (primary) hypertension (4) Carotid stenosis Code(s): I65.29 - OCCLUSION AND STENOSIS OF UNSPECIFIED CAROTID ARTERY
[2018-10-21] MEDS: ATORVASTATIN CA 10 MG TABLET (FP) PO SCH (22:46)
[2018-10-22 01:38] VITALS: BP 118/52; PULSE 56; TEMP 97.8
--- NOTE | 2018-10-22 07:41 | DS ---
Physical Examination Vital Signs: Vital Signs Temperature 36.6 C 10/22/18 01:37 Pulse Rate 56 L 10/22/18 01:37 Respiratory Rate 20 10/22/18 01:37 Blood Pressure 118/52 L 10/22/18 01:37 O2 Sat by Pulse Oximetry (%) 97 10/21/18 21:00 Labs: CBC, BMP 10/20/18 05:30 10/21/18 05:50 Discharge Summary Reason For Visit: CHEST PAIN,HYPONATREMIA Condition: Stable - Instructions Diet, Activity, Other Instructions: Follow up with cardiology Follow up with [facility] for sleep studies Referrals: Juan Ramon Kasper MD [Staff Physician] - Geoff Montiel MD [Staff Physician] - Jeffrey Felix MD [Primary Care Provider] - Disposition: TRANSFER ACUTE CARE/OTHER HOSP - Home Medications Comprehensive Discharge Medication List: Ambulatory Orders Aspirin [ASA -] 81 mg PO DAILY 12/16/15 Atorvastatin Ca [Lipitor] 5 mg PO HS 12/16/15 Clopidogrel Bisulfate [Plavix -] 75 mg PO DAILY 12/16/15 Metoprolol Tartrate [Lopressor -] 50 mg PO DAILY 12/16/15 Hydrochlorothiazide 25 mg PO DAILY 10/17/18 Nifedipine ER [Procardia Xl -] 30 mg PO DAILY 10/17/18
== END 2018-10-22 02:35 | disposition short-term general hospital (02) | DRG 303 ==
LOC: JER 19:06 → JERBED 21:10 → J4W 10-18 03:01 → OBSVTOIN 10-18 15:01 → J4W 10-18 19:00
PROVIDERS: ADMIT Internal Medicine; ATTEND Internal Medicine
DX: I25.119 Atherosclerotic heart disease of native coronary artery with unspecified angina pectoris (principal); E87.1 Hypo-osmolality and hyponatremia; Z68.41 Body mass index [BMI] 40.0-44.9, adult; J90 Pleural effusion, not elsewhere classified; R07.89 Other chest pain; I10 Essential (primary) hypertension; E78.5 Hyperlipidemia, unspecified; E86.0 Dehydration; E66.01 Morbid (severe) obesity due to excess calories; I65.29 Occlusion and stenosis of unspecified carotid artery; I65.23 Occlusion and stenosis of bilateral carotid arteries; T50.2X5A Adverse effect of carbonic-anhydrase inhibitors, benzothiadiazides and other diuretics, initial encounter
CPT/HCPCS: 36415; 71046-TC-FY; 78452-TC; 80048; 80053; 80061; 82436; 82550; 83036; 83721; 83735; 83880; 83930; 83935; 84100; 84133; 84300; 84443; 84484; 85025; 85610; 85730; 93005; 93010; 93017; 93306-TC; 93880-TC; 99283-25; A9502; G0378; J1644; J7030